=== PATIENT | male | born 1970 | race Caucasian/White ===

== ENCOUNTER 2017-01-23 10:54 | Outpatient (CLI) | payer MEDICARE, MEDICAID ==
[~2017-01-23 10:54] MED LIST: ACET325T53 PO; AMLO5TAB2 PO; ATOR20TA PO; CARV25TA PO; CLON0.1T PO; DOCU-25 PO; FENO145T PO; FURO-145 PO; HYDR100T27 PO; INSU100V3 IJ; ISOS30TA PO; LANC-346 MC; LOSA100T3 PO; MAG30ORA PO; MAGN400O4 PO; METF10002 PO; ONDA4TAB5 PO; OXYC-34 PO; PANT40TA2 PO; ZOLP5TAB7 PO
== END 2017-01-23 23:59 | disposition home or self-care (01) ==
LOC: RAD 10:54
PROVIDERS: ATTEND Family Medicine
DX: M25.832 Other specified joint disorders, left wrist (principal); M79.632 Pain in left forearm
CPT/HCPCS: 73090-TC; 73110

== ENCOUNTER 2017-04-15 12:21 | Outpatient (CLI) | payer MEDICARE, MEDICAID | END 2017-04-15 23:59 | disposition home or self-care (01) | LOC: RAD 12:21 | PROVIDERS: ATTEND Family Medicine | DX: I70.0 Atherosclerosis of aorta (principal); M47.894 Other spondylosis, thoracic region; F17.200 Nicotine dependence, unspecified, uncomplicated; Z95.0 Presence of cardiac pacemaker | CPT/HCPCS: 71020-TC ==

== ENCOUNTER 2017-12-12 14:45 | Outpatient (CLI) | payer MEDICARE, MEDICAID ==
[~2017-12-12 14:45] MED LIST changes: -AMLO5TAB2 PO; +AMLO5TAB7 PO; +DOCU-141 PO; -DOCU-25 PO; +MAGN400O21 PO; -MAGN400O4 PO; +METF-442 PO; -METF10002 PO; +OXYC-133 PO; -OXYC-34 PO; -ZOLP5TAB7 PO; +ZOLP5TAB8 PO
[2017-12-12 16:01] LABS: BASOPHILS # (AUTO) 0.1 /CMM (0.0-0.2); BASOPHILS % (AUTO) 0.5 % (0.0-2.0); EOSINOPHILS % (AUTO) 2.7 % (0.0-6.0); HEMATOCRIT 41 % (39-51); HEMOGLOBIN 13.4 g/dL (13.5-17.5); LYMPHOCYTES # (AUTO) 3.6 /CMM (0.8-4.8); LYMPHOCYTES % (AUTO) 31.9 % (20.0-44.0); MEAN CORPUSCULAR HGB CONC 33 g/dl (31.0-36.0); MEAN CORPUSCULAR VOLUME 91 fL (80-96); MONOCYTES # (AUTO) 1.2 /CMM (0.1-1.30); MONOCYTES % (AUTO) 10.3 % (2.0-12.0); NEUTROPHILS # (AUTO) 6.1 /CMM (1.8-8.9); NEUTROPHILS % (AUTO) 54.6 % (43.0-81.0); PLATELET COUNT (AUTO) 247 /CMM (150-450); RDW COEFFICIENT OF VARIATION 14.6 (11.5-15.0); RED BLOOD CELL COUNT(AUTO) 4.49 MIL/uL (4.5-6.0); WHITE BLOOD COUNT (AUTO) 11.3 K/uL (4.3-11.0)
[2017-12-12 16:07] LABS: CALCIUM, SERUM 8.9 mg/dL (8.5-10.1); CREATININE 1.7 mg/dL (0.6-1.3); POTASSIUM 3.5 mmol/L (3.5-5.1)
== END 2017-12-12 23:59 | disposition home or self-care (01) ==
LOC: RAD 14:45
PROVIDERS: ATTEND Internal Medicine Cardiovascular Disease
DX: I51.7 Cardiomegaly (principal); I08.0 Rheumatic disorders of both mitral and aortic valves; I50.9 Heart failure, unspecified; M47.894 Other spondylosis, thoracic region; I70.0 Atherosclerosis of aorta
CPT/HCPCS: 36415; 71046; 80048-TC; 83880; 85025-TC; 93307-TC

== ENCOUNTER 2017-12-26 16:39 | Inpatient (IN) | payer MEDICARE, MEDICAID ==
[~2017-12-26] VITALS: Ht 185.4 cm; Wt 137.4 kg
--- NOTE | 2017-12-26 16:45 | NUR ---
SENT HERE BY DR ESPINAL FOR WORSENING SX COUGH/SOB. DX W/ PNA A WEEK AGO. A/OX 4. BREATHING EVEN AND UNLABORED. NO DISTRESS NOTED. VITALS STABLE. SAFETY AND COMFORT MEASURES IN PLACE. AWAITING MD ORDERS.
[2017-12-26 17:31] LABS: BASOPHILS % (AUTO) 0.4 % (0.0-2.0); EOSINOPHILS % (AUTO) 1.3 % (0.0-6.0); HEMATOCRIT 34 % (39-51); HEMOGLOBIN 11.4 g/dL (13.5-17.5); LYMPHOCYTES # (AUTO) 1.9 /CMM (0.8-4.8); LYMPHOCYTES % (AUTO) 28.6 % (20.0-44.0); MEAN CORPUSCULAR HGB CONC 33 g/dl (31.0-36.0); MEAN CORPUSCULAR VOLUME 90 fL (80-96); MONOCYTES # (AUTO) 1.1 /CMM (0.1-1.30); MONOCYTES % (AUTO) 16.4 % (2.0-12.0); NEUTROPHILS # (AUTO) 3.6 /CMM (1.8-8.9); NEUTROPHILS % (AUTO) 53.3 % (43.0-81.0); PLATELET COUNT (AUTO) 311 /CMM (150-450); RDW COEFFICIENT OF VARIATION 15.1 (11.5-15.0); RED BLOOD CELL COUNT(AUTO) 3.79 MIL/uL (4.5-6.0); WHITE BLOOD COUNT (AUTO) 6.8 K/uL (4.3-11.0)
[2017-12-26 17:35] LABS: TROPONIN I 0.024 ng/mL (0.00-0.056)
[2017-12-26 17:40] LABS: ALBUMIN 2.5 g/dL (3.4-5.0); BILIRUBIN,DIRECT 0.1 mg/dL (0.0-0.2); BILIRUBIN,TOTAL 0.3 mg/dL (0.2-1.0); CALCIUM, SERUM 8.5 mg/dL (8.5-10.1); CREATININE 2.8 mg/dL (0.6-1.3); TOTAL PROTEIN, SERUM 6.4 g/dL (6.4-8.2)
--- NOTE | 2017-12-26 17:40 | NUR ---
NEW IV STARTED ON LEFT HAND, 20G. BLOOD DRAWN AND SENT TO LAB.
[2017-12-26 18:02] LABS: INR 0.95 (0.85-1.15)
[2017-12-26] MEDS ORDERED: CLON0.1T PO (18:11)
[2017-12-26] MEDS ORDERED: METO50TA7 PO (18:11)
[2017-12-26] MEDS ORDERED: VARE1TAB21 PO (18:11)
[2017-12-26] MEDS ORDERED: GABA600T2 PO (18:11)
[2017-12-26] MEDS ORDERED: SUCR1ORA PO (18:11)
[2017-12-26] MEDS ORDERED: LIRA0.6P2 SQ (18:11)
[2017-12-26] MEDS ORDERED: OXYC10SY PO (18:11)
[2017-12-26] MEDS ORDERED: LOSA100T15 PO (18:11)
[2017-12-26] MEDS ORDERED: ROSU10TA PO (18:11)
[2017-12-26] MEDS ORDERED: SITA100T PO (18:11)
[2017-12-26] MEDS ORDERED: CYAN10009 SL (18:11)
[2017-12-26] MEDS ORDERED: CLOP75TA15 PO (18:11)
[2017-12-26] MEDS ORDERED: IPRA0.2S49 NEB (18:11)
[2017-12-26] MEDS ORDERED: CARV25TA2 PO (18:11)
[2017-12-26] MEDS ORDERED: BENZ200C53 PO (18:11)
[2017-12-26] MEDS ORDERED: INSU200I4 SQ (18:11)
[2017-12-26] MEDS ORDERED: NALO0.4A7 IJ (18:11)
[2017-12-26] MEDS ORDERED: BUDE10.2 INH (18:11)
[2017-12-26] MEDS ORDERED: METF-442 PO (18:11)
[2017-12-26] MEDS ORDERED: INSU100V30 IJ (18:11)
[2017-12-26] MEDS ORDERED: ISOS30TA6 PO (18:11)
[2017-12-26] MEDS ORDERED: FURO40TA5 PO (18:11)
[2017-12-26] MEDS ORDERED: HYDR100T27 PO (18:11)
[2017-12-26] MEDS ORDERED: PANT40TA4 PO (18:11)
[2017-12-26] MEDS ORDERED: ERGO400T7 PO (18:11)
[2017-12-26] MEDS ORDERED: SPIR50TA5 PO (18:11)
[2017-12-26] MEDS ORDERED: FENO145T PO (18:11)
[2017-12-26] MEDS ORDERED: FUROSEMIDE 40 MG/4 ML VIAL ONE (18:58)
[2017-12-26] MEDS ORDERED: FUROSEMIDE 40 MG/4 ML VIAL IV ONE (19:00)
--- NOTE | 2017-12-26 19:14 | NUR ---
REPORT GIVEN TO BRAVO MARTINEZ FOR GLEN.
--- NOTE | 2017-12-26 19:17 | NUR ---
RECEIVED REPORT FROM JUAN SAGASTUME FOR GLEN.
[2017-12-26 20:00] VITALS: BP_SYST 129; BP_SYST 145; BP_DIAS 72; BP_DIAS 97
--- NOTE | 2017-12-26 20:06 | NUR ---
TRANSPORTED PT TO TELE BED WITHOUT INCIDENT
[2017-12-26] MEDS ORDERED: ACETAMINOPHEN 325 MG TABLET PO PRN (20:30)
[2017-12-26] MEDS ORDERED: Z GUARD REMEDY 2 OZ OINT TP PRN (20:30)
[2017-12-26] MEDS ORDERED: ONDANSETRON HCL/PF 4 MG/2 ML VIAL IVP PRN (20:30)
[2017-12-26] MEDS ORDERED: MAG HYDROX/AL HYDROX/SIMETH 30 ML UDC PO PRN (20:30)
[2017-12-26] MEDS ORDERED: MAGNESIUM HYDROXIDE 30 ML UDC PO PRN (20:30)
[2017-12-26] MEDS ORDERED: ALBUTEROL FS 2.5 MG/3 ML VIAL.NEB NEB PRN (20:30)
[2017-12-26] MEDS ORDERED: ENOXAPARIN SODIUM 40 MG/0.4 ML DISP.SYRIN SQ SCH (21:00)
[2017-12-26] MEDS ORDERED: BENZONATATE 100 MG CAPSULE PO PRN (21:00)
[2017-12-26] MEDS: CARVEDILOL 12.5 MG TABLET PO SCH (21:39)
[2017-12-26] MEDS: AMLODIPINE BESYLATE 5 MG TABLET PO SCH (21:40)
[2017-12-26] MEDS: HYDROCODONE/APAP 5/325MG 1 EACH TABLET PO PRN (21:47)
[2017-12-26] MEDS ORDERED: DEXTROSE 50%-WATER 50 ML DISP.SYRIN IV PRN (22:30)
[2017-12-27] VITALS (7 sets, daily range): BP systolic 144–171; BP diastolic 80–100
[2017-12-27] MEDS: IPRATROPIUM NEB FS 0.5 MG/2.5 ML AMPUL.NEB NEB SCH ×4 (01:44→20:09)
--- NOTE | 2017-12-27 06:25 | NUR ---
RN ADMITTING TEL NOTE RECEIVED PT ON GURNEY FROM ER, NO REP[ORT GIVEN, PT AOX3 VERBALLY RESPONSIVE, ON RA, C/O PAIN, WITH CHRONIC BACK PAIN D/T PAST SX; LOW BACK. C/C; COUGH W/ WORSENING SOB. ADMITTED FOR MILD CHF, WITH LH # 20 G SL, NO SKIN ISSUES NOTED PT AMBULATORY W/ STEADY GAIT, ALL ADMITTING ORDERS ENTERED BY DR RIVERA PER PROTOCOL, ON CARDIAC LOW FAT. ALL NEEDS MET, SAFETY MEASURES EXPLAINED ON ORIENTING PT TO THE ROOM. CL WR.
[2017-12-27 06:36] LABS: BASOPHILS % (AUTO) 0.4 % (0.0-2.0); EOSINOPHILS % (AUTO) 1.7 % (0.0-6.0); HEMATOCRIT 36 % (39-51); HEMOGLOBIN 12.1 g/dL (13.5-17.5); LYMPHOCYTES # (AUTO) 2.1 /CMM (0.8-4.8); LYMPHOCYTES % (AUTO) 28.3 % (20.0-44.0); MEAN CORPUSCULAR HGB CONC 33 g/dl (31.0-36.0); MEAN CORPUSCULAR VOLUME 91 fL (80-96); MONOCYTES # (AUTO) 1.2 /CMM (0.1-1.30); NEUTROPHILS # (AUTO) 3.8 /CMM (1.8-8.9); NEUTROPHILS % (AUTO) 52.6 % (43.0-81.0); PLATELET COUNT (AUTO) 311 /CMM (150-450); RDW COEFFICIENT OF VARIATION 14.9 (11.5-15.0); RED BLOOD CELL COUNT(AUTO) 4.02 MIL/uL (4.5-6.0); WHITE BLOOD COUNT (AUTO) 7.3 K/uL (4.3-11.0)
--- NOTE | 2017-12-27 06:36 | NUR ---
RN CLOSING NOTE PT ENDORSED IN STABLE CONDITION TO AM FOR GLEN, BP MEDS TO BE GIVEN ON TIME PT BP TENDS TO SPIKE UP AMBULATING TO THE BATHROOM, ALL NEEDS MET.
[2017-12-27 07:05] LABS: CALCIUM, SERUM 8.8 mg/dL (8.5-10.1); CREATININE 2.5 mg/dL (0.6-1.3); PHOSPHORUS 4.5 mg/dL (2.5-4.9); POTASSIUM 3.4 mmol/L (3.5-5.1)
--- NOTE | 2017-12-27 07:30 | NUR ---
RN IV THERAPY OPENING NOTES RECEIVED PATIENT IN STABLE CONDITION. IN NO APPARENT DISTRESS. BEDSIDE RAILS ARE UPX2. BED IS LOCKED AND LOWERED. CALL LIGHT IS WITHIN REACH. WILL CONTINUE TO MONITOR.
[2017-12-27] MEDS: BLOOD SUGAR DIAGNOSTIC 1 EACH STRIP IN SCH ×4 (08:17→21:27)
[2017-12-27] MEDS: SUCRALFATE 1 G/10 ML UDC PO SCH ×3 (08:19→17:16)
[2017-12-27] MEDS: DOCUSATE SODIUM 100 MG CAPSULE PO SCH ×2 (08:19→17:00)
[2017-12-27] MEDS: GABAPENTIN 400 MG CAPSULE PO SCH ×2 (08:19→17:16)
[2017-12-27] MEDS: PANTOPRAZOLE 40 MG TABLET.DR PO SCH (08:20)
[2017-12-27] MEDS: FENOFIBRATE NANOCRYS (145 MG) 145 MG TABLET PO SCH (08:20)
[2017-12-27] MEDS: CARVEDILOL 12.5 MG TABLET PO SCH ×2 (08:21→20:00)
[2017-12-27] MEDS: CLOPIDOGREL BISULFATE 75 MG TABLET PO SCH (08:21)
[2017-12-27] MEDS: ISOSORBIDE MONONITRATE (30MG) 30 MG TAB.SR.24H PO SCH (08:21)
[2017-12-27] MEDS: AMLODIPINE BESYLATE 5 MG TABLET PO SCH ×2 (08:22→20:01)
[2017-12-27 08:51] LABS: EOSINOPHILS % (MANUAL) 1 % (0-4); LYMPHOCYTES % (MANUAL) 27 % (16-48); MONOCYTES % (MANUAL) 13 % (0-11.0); NEUTROPHILS % (MANUAL) 59 (42-76)
[2017-12-27] MEDS ORDERED: POTASSIUM CHLORIDE 10 MEQ TABLET.SA PO ONE (12:00)
[2017-12-27] MEDS: HEPARIN SODIUM, PORCINE 5000 UNITS/1 ML VIAL SQ SCH ×2 (12:03→21:29)
[2017-12-27] MEDS: INSULIN REGULAR, HUMAN 100 UNIT/ML 3 ML VIAL SQ PRN ×2 (12:16→21:34)
--- NOTE | 2017-12-27 13:20 | NUR ---
RT HHN TX NOT GIVEN PATIENT WAS NOT IN ROOM OR WALKING AROUND
[2017-12-27] MEDS: CLONIDINE HCL 0.1 MG TABLET PO PRN (17:17)
--- NOTE | 2017-12-27 18:32 | NUR ---
BOAT HOP CLOSING NOTES PATIENT IN STABLE CONDITION. IN NO APPARENT DISTRESS. BEDSIDE RAILS ARE UPX2. BED IS LOCKED AND LOWERED. IV LINE IS INTACT AND PATENT. ALL NEEDS WERE MET. CALL LIGHT IS WITHIN REACH. WILL ENDORSE CARE TO INBOUND SALES CONSULTANT NURSE FOR GLEN.
[2017-12-27] MEDS: HYDROCODONE/APAP 5/325MG 1 EACH TABLET PO PRN (20:01)
--- NOTE | 2017-12-27 21:20 | NUR ---
TELE-1/CLINICAL EDUCATION CONSULTANT PT COMPLAINT OF BACK PAIN WITH NO RELIEF FROM PRN NORCO 5/325. DR. RIVERA PAGED AND NEW ORDER FOR NORCO 10/325 Q4 PRN OBTAINED. WILL CONTINUE TO MONITOR.
[2017-12-27] MEDS: ZOLPIDEM TARTRATE 5 MG TABLET PO PRN (21:27)
[2017-12-27] MEDS: HYDROCODONE/APAP 10/325MG 1 EA TABLET PO PRN (21:36)
--- NOTE | 2017-12-27 22:28 | NUR ---
TELE-1/UX CONSULTANT PT MOVED TO ROOM 120-1 FOR PT SATISFACTION. WILL CONTINUE TO MONITOR.
[2017-12-27 23:55] LABS: APPEARANCE,URINE CLEAR (CLEAR); BILIRUBIN,URINE NEGATIVE (NEGATIVE); BLOOD, URINE 1+ Ery/uL (NEGATIVE); COLOR,URINE YELLOW (YELLOW); KETONES,URINE NEGATIVE (NEGATIVE); LEUKOCYTE ESTERASE ,URINE NEGATIVE (NEGATIVE); NITRITE, URINE NEGATIVE (NEGATIVE); PROTEIN,URINE 3+ mg/dl (NEGATIVE); UGLUCOSE TRACE mg/dL (NEGATIVE); UROBILINOGEN,URINE 0.2 EU/dL (0.2)
[2017-12-28] VITALS (7 sets, daily range): BP systolic 137–201; BP diastolic 66–111
[2017-12-28 00:01] LABS: BACTERIA,URINE Few /HPF (None Seen); FINE GRANULAR CASTS,URINE Rare /LPF (None Seen); HYALINE CASTS, URINE Few /LPF (None Seen); SQUAMOUS EPITHELIAL CELL,UR Few /HPF (None Seen)
[2017-12-28] MEDS: CLONIDINE HCL 0.1 MG TABLET PO PRN ×2 (00:02→18:41)
[2017-12-28 00:16] LABS: CREATININE, URINE 132.1 MG/DL (30.0-125.0)
[2017-12-28 00:24] LABS: URINE TOTAL PROTEIN 688.5 mg/dL (0-11.9)
[2017-12-28 00:48] LABS: EOSINOPHIL,URINE None Seen
[2017-12-28] MEDS: IPRATROPIUM NEB FS 0.5 MG/2.5 ML AMPUL.NEB NEB SCH ×4 (02:07→19:30)
[2017-12-28 06:34] LABS: BASOPHILS % (AUTO) 0.2 % (0.0-2.0); EOSINOPHILS % (AUTO) 1.8 % (0.0-6.0); HEMATOCRIT 37 % (39-51); LYMPHOCYTES # (AUTO) 2.1 /CMM (0.8-4.8); LYMPHOCYTES % (AUTO) 24.6 % (20.0-44.0); MEAN CORPUSCULAR HGB CONC 33 g/dl (31.0-36.0); MEAN CORPUSCULAR VOLUME 91 fL (80-96); MONOCYTES # (AUTO) 1.2 /CMM (0.1-1.30); MONOCYTES % (AUTO) 13.6 % (2.0-12.0); NEUTROPHILS # (AUTO) 5.1 /CMM (1.8-8.9); NEUTROPHILS % (AUTO) 59.8 % (43.0-81.0); PLATELET COUNT (AUTO) 327 /CMM (150-450); RDW COEFFICIENT OF VARIATION 14.9 (11.5-15.0); RED BLOOD CELL COUNT(AUTO) 4.04 MIL/uL (4.5-6.0); WHITE BLOOD COUNT (AUTO) 8.6 K/uL (4.3-11.0)
--- NOTE | 2017-12-28 06:35 | NUR ---
TELE-1/FORMWORK CARPENTER PT COMPLAINT OF DRY COUGH. CALL PLACED TO DR. RIVERA FOR PRN COUGH MEDICATION. AWAITING CALL BACK.
[2017-12-28 07:05] LABS: ALBUMIN 2.3 g/dL (3.4-5.0); BILIRUBIN,TOTAL 0.2 mg/dL (0.2-1.0); CALCIUM, SERUM 8.9 mg/dL (8.5-10.1); CREATININE 2.1 mg/dL (0.6-1.3); MAGNESIUM 2.2 mg/dL (1.8-2.4); PHOSPHORUS 3.6 mg/dL (2.5-4.9); POTASSIUM 3.9 mmol/L (3.5-5.1); TOTAL PROTEIN, SERUM 6.1 g/dL (6.4-8.2)
[2017-12-28 07:10] LABS: THYROID STIMULATING HORMONE 2.17 uIU/mL (0.358-3.74)
[2017-12-28] MEDS: BLOOD SUGAR DIAGNOSTIC 1 EACH STRIP IN SCH ×4 (07:30→21:20)
[2017-12-28] MEDS: FLUTICASONE/VILANTEROL 1 EACH BLST.W.DEV IH SCH (08:51)
[2017-12-28] MEDS: SUCRALFATE 1 G/10 ML UDC PO SCH ×3 (08:51→17:23)
[2017-12-28] MEDS: DOCUSATE SODIUM 100 MG CAPSULE PO SCH ×2 (08:52→16:43)
[2017-12-28] MEDS: CARVEDILOL 12.5 MG TABLET PO SCH ×2 (08:53→21:18)
[2017-12-28] MEDS: CLOPIDOGREL BISULFATE 75 MG TABLET PO SCH (08:53)
[2017-12-28] MEDS: GABAPENTIN 400 MG CAPSULE PO SCH ×2 (08:55→16:42)
[2017-12-28] MEDS: PANTOPRAZOLE 40 MG TABLET.DR PO SCH (08:55)
[2017-12-28] MEDS: ISOSORBIDE MONONITRATE (30MG) 30 MG TAB.SR.24H PO SCH (08:55)
[2017-12-28] MEDS: FENOFIBRATE NANOCRYS (145 MG) 145 MG TABLET PO SCH (08:55)
[2017-12-28] MEDS: AMLODIPINE BESYLATE 5 MG TABLET PO SCH ×2 (08:56→21:18)
[2017-12-28] MEDS: HEPARIN SODIUM, PORCINE 5000 UNITS/1 ML VIAL SQ SCH ×2 (09:02→21:17)
[2017-12-28] MEDS: INSULIN REGULAR, HUMAN 100 UNIT/ML 3 ML VIAL SQ PRN ×3 (09:25→21:22)
[2017-12-28] MEDS ORDERED: ISOSORBIDE MONONITRATE (30MG) 30 MG TAB.SR.24H PO ONE (15:00)
[2017-12-28] MEDS: HYDROCODONE/APAP 10/325MG 1 EA TABLET PO PRN ×2 (15:28→21:23)
[2017-12-28] MEDS: hydrALAZINE HCL 25 MG TABLET PO PRN (16:47)
[2017-12-28] MEDS ORDERED: hydrALAZINE HCL 50 MG TABLET PO ONE (19:30)
--- NOTE | 2017-12-28 19:30 | NUR ---
B2B MANAGED SERVICE SALES EXEC NOTE RECEIVED PATIENT FROM DAY SHIFT, PATIENT IS ALERT AND ORIENTEDX4, NO S/S OF RESPIRATORY DISTRESS OR PAIN AT THIS TIME. IV ON LEFT HAND IS PATENT AND INTACT, SL ONLY. TELE SR 70. PT HAS BEEN HAVING HIGH BP, ACKNOWLEDGED NEW ORDER OF HYDRALAZINE 100MG TID PO. WILL START TO ADMINISTER TONIGHT. SRX2, BED IN LOW POSITION, ALL LIGHT WITHIN REACH.
--- NOTE | 2017-12-28 19:35 | NUR ---
TELE REGISTER REPAIRER CLOSING NOTE, PATIENT STABLE, CALL LIGHT IN REACH, BED TO LOWEST SETTING, SIDE RAILS UPX2. PERIODS OF HIGH BLOOD PRESSURE REPORTED TO CHARGE NURSE AND MD AWARE. PATIENT TO START HYDRALAZINE 100MG TID. PENOLOGY TEACHER NURSE AWARE. POINT OF CONTACT FOR PATIENT MEDICATION LIST IS MD ULISES ESPINAL. PATIENT DAUGHTER REZA WISHES TO BE NOTIFIED OF PATIENT CONDITION @ [phone] OTHERWISE PATIENT NEEDS ATTENDED.
--- NOTE | 2017-12-28 20:30 | NUR ---
FREIGHT LOADER NOTE PATIENT WANTS TO TAKE A SHOWER, IT HAS BEEN 3 DAYS, AND HE'S BEEN ASKING FOR IT SINCE ADMISSION. PAGED DR. RIVERA TO SEE IF HE IS OKAY TO SHOWER, SAID OKAY.
--- NOTE | 2017-12-28 22:00 | NUR ---
DESULFURIZER MACHINE NOTE PATIENT COMPLAINS OF BACK PAIN 03/28, NORCO 10-325MG PO GIVEN. WILL MONITOR EFFECTIVENESS.
--- NOTE | 2017-12-28 22:20 | NUR ---
PROCESSING SPEC NOTE PATIENT HAS CONCERNS ABOUT HIS MEDICATIONS. HE STATED THAT HE HAS BEEN GETTING LASIX 60MG PO IN THE MORNING AND 40 MG PO AT [facility] AT HOME, AND ACCORDING TO HIM, DR SAID THAT HE WILL RESUME LASIX, BUT THERE ARE NO ACTIVE ORDERS TO ADMINISTER THE MED. PAGED ONCALL DR RIVERA, AND EXPLAINED THE SITUATION TO GET MED ORDER, BUT DR RIVERA WANTS DR. PRADHAN TO FOLLOW IT UP IN THE MORNING SINCE SHE KNOWS MORE ABOUT THE PATIENT. RELAYED THE MESSAGE TO THE PATIENT WELL.
[2017-12-28] MEDS: ZOLPIDEM TARTRATE 5 MG TABLET PO PRN (23:51)
[2017-12-29] VITALS (7 sets, daily range): BP systolic 157–210; BP diastolic 82–112
[2017-12-29] MEDS: IPRATROPIUM NEB FS 0.5 MG/2.5 ML AMPUL.NEB NEB SCH ×4 (01:32→19:18)
[2017-12-29] MEDS: CLONIDINE HCL 0.1 MG TABLET PO PRN (04:25)
[2017-12-29 06:16] LABS: BASOPHILS % (AUTO) 0.4 % (0.0-2.0); EOSINOPHILS % (AUTO) 2.2 % (0.0-6.0); HEMATOCRIT 36 % (39-51); HEMOGLOBIN 11.9 g/dL (13.5-17.5); LYMPHOCYTES % (AUTO) 24.3 % (20.0-44.0); MEAN CORPUSCULAR HGB CONC 33 g/dl (31.0-36.0); MEAN CORPUSCULAR VOLUME 90 fL (80-96); MONOCYTES # (AUTO) 0.9 /CMM (0.1-1.30); MONOCYTES % (AUTO) 10.9 % (2.0-12.0); NEUTROPHILS # (AUTO) 5.1 /CMM (1.8-8.9); NEUTROPHILS % (AUTO) 62.2 % (43.0-81.0); PLATELET COUNT (AUTO) 346 /CMM (150-450); RDW COEFFICIENT OF VARIATION 15.3 (11.5-15.0); RED BLOOD CELL COUNT(AUTO) 3.98 MIL/uL (4.5-6.0); WHITE BLOOD COUNT (AUTO) 8.2 K/uL (4.3-11.0)
[2017-12-29 06:37] LABS: CALCIUM, SERUM 8.6 mg/dL (8.5-10.1); CREATININE 1.7 mg/dL (0.6-1.3); MAGNESIUM 2.2 mg/dL (1.8-2.4); PHOSPHORUS 3.6 mg/dL (2.5-4.9); POTASSIUM 3.8 mmol/L (3.5-5.1)
--- NOTE | 2017-12-29 06:47 | NUR ---
CHECKER/STOCKER NOTE PATIENT IS RESTING IN BED COMFORTABLY, NO S/S OF RESPIRATORY DISTRESS AND NO COMPLAINS OF PAIN REPORTED. IV ON LEFT HAND IS PATENT AND INTACT, SL ONLY. TELE SR 75. WILL ENDORSE TO DAY SHIFT NURSE FOR GLEN.
--- NOTE | 2017-12-29 07:28 | NUR ---
RN NOTES RECEIVED PT A&0X3, ON ROOM AIR NO SOB OR DISTRESS NOTED. SR ON THE TELE ALE HR 70. L HAND 20G IV SITE INTACT WITH NO IVF. NO COMPLAINTS OF PAIN AT THIS TIME. BED LOCKED AND IN LOWEST POSITION, CALL LIGHT WITHIN REACH, SIDE RAILS UPX3, WILL CONT TO ALE.
[2017-12-29] MEDS: BLOOD SUGAR DIAGNOSTIC 1 EACH STRIP IN SCH ×4 (07:57→21:13)
[2017-12-29] MEDS: CLOPIDOGREL BISULFATE 75 MG TABLET PO SCH (08:41)
[2017-12-29] MEDS: CARVEDILOL 12.5 MG TABLET PO SCH ×2 (08:41→21:12)
[2017-12-29] MEDS: hydrALAZINE HCL 50 MG TABLET PO SCH ×3 (08:41→17:14)
[2017-12-29] MEDS: FENOFIBRATE NANOCRYS (145 MG) 145 MG TABLET PO SCH (08:42)
[2017-12-29] MEDS: AMLODIPINE BESYLATE 5 MG TABLET PO SCH ×2 (08:42→21:11)
[2017-12-29] MEDS: DOCUSATE SODIUM 100 MG CAPSULE PO SCH ×2 (08:42→17:14)
[2017-12-29] MEDS: GABAPENTIN 400 MG CAPSULE PO SCH ×2 (08:42→17:14)
[2017-12-29] MEDS: PANTOPRAZOLE 40 MG TABLET.DR PO SCH (08:43)
[2017-12-29] MEDS: SUCRALFATE 1 G/10 ML UDC PO SCH ×3 (08:43→17:15)
[2017-12-29] MEDS: HEPARIN SODIUM, PORCINE 5000 UNITS/1 ML VIAL SQ SCH ×2 (08:43→21:14)
[2017-12-29] MEDS: FLUTICASONE/VILANTEROL 1 EACH BLST.W.DEV IH SCH (08:43)
[2017-12-29] MEDS ORDERED: ISOSORBIDE MONONITRATE (30MG) 30 MG TAB.SR.24H PO SCH (09:00)
[2017-12-29] MEDS: INSULIN REGULAR, HUMAN 100 UNIT/ML 3 ML VIAL SQ PRN ×3 (12:14→21:23)
[2017-12-29] MEDS ORDERED: ISOSORBIDE MONONITRATE (30MG) 30 MG TAB.SR.24H PO ONE (15:00)
[2017-12-29] MEDS: CLONIDINE HCL 0.1 MG TABLET PO SCH ×2 (15:03→21:13)
--- NOTE | 2017-12-29 15:30 | NUR ---
RN NOTES PT PULLED OUT IV BY ACCIDENT. REFUSING TO HAVE A NEW IV STARTED AT THIS TIME. EDUCATION DONE, PT STATES IT WILL HURT AND HE DOESN'T NEED ONE. WILL ATTEMPT AGAIN.
--- NOTE | 2017-12-29 19:30 | NUR ---
RN NOTES PT RECIEVED IN BED. A/O X3. TELE SR 86. PT STABLE CONDITION. PT REFUSING IV. PT EXPLAINED RISKS AND BENEFITS AND STILL REFUSED. BED LOWEST LOCKED POSITION. CALL LIGHT WITHIN REACH. WILL CONTINUE TO MONITOR.
[2017-12-30] VITALS: BP 182/73
[2017-12-30] MEDS: hydrALAZINE HCL 25 MG TABLET PO PRN ×2 (00:03→04:40)
[2017-12-30] MEDS: ZOLPIDEM TARTRATE 5 MG TABLET PO PRN (00:40)
[2017-12-30] MEDS: HYDROCODONE/APAP 10/325MG 1 EA TABLET PO PRN (00:40)
[2017-12-30] MEDS: IPRATROPIUM NEB FS 0.5 MG/2.5 ML AMPUL.NEB NEB SCH ×3 (01:58→13:30)
[2017-12-30] MEDS: CLONIDINE HCL 0.1 MG TABLET PO PRN (02:00)
[2017-12-30 04:00] VITALS: BP 171/106
--- NOTE | 2017-12-30 06:51 | NUR ---
RN NOTES MONITORED BP THROUGHOUT SHIFT. PRN BP MEDS GIVEN ORDERED. AND BP REMAINED HIGH. NO COMPLAINTS OF S/S OF HIGH BP. PT COMFORTABLE RESTING THROUGHOUT NIGHT WITH NEGATIVE RESTLESSNESS AND DISCOMFORT. CALL LIGHT WITHIN REACH. STILL REFUSING IV. BED LOCKED LOWEST POSITION. WILL ENDORSE TO NEXT SHIFT.
[2017-12-30 06:52] LABS: BASOPHILS % (AUTO) 0.4 % (0.0-2.0); EOSINOPHILS % (AUTO) 2.3 % (0.0-6.0); HEMATOCRIT 36 % (39-51); HEMOGLOBIN 11.9 g/dL (13.5-17.5); LYMPHOCYTES # (AUTO) 2.2 /CMM (0.8-4.8); LYMPHOCYTES % (AUTO) 28.4 % (20.0-44.0); MEAN CORPUSCULAR HGB CONC 33 g/dl (31.0-36.0); MEAN CORPUSCULAR VOLUME 91 fL (80-96); MONOCYTES # (AUTO) 0.7 /CMM (0.1-1.30); MONOCYTES % (AUTO) 9.7 % (2.0-12.0); NEUTROPHILS # (AUTO) 4.5 /CMM (1.8-8.9); NEUTROPHILS % (AUTO) 59.2 % (43.0-81.0); PLATELET COUNT (AUTO) 338 /CMM (150-450); RDW COEFFICIENT OF VARIATION 15.1 (11.5-15.0); RED BLOOD CELL COUNT(AUTO) 3.96 MIL/uL (4.5-6.0); WHITE BLOOD COUNT (AUTO) 7.6 K/uL (4.3-11.0)
[2017-12-30 06:54] LABS: CALCIUM, SERUM 8.8 mg/dL (8.5-10.1); CREATININE 1.8 mg/dL (0.6-1.3); MAGNESIUM 2.4 mg/dL (1.8-2.4); PHOSPHORUS 3.7 mg/dL (2.5-4.9); POTASSIUM 3.8 mmol/L (3.5-5.1)
[2017-12-30] MEDS: BLOOD SUGAR DIAGNOSTIC 1 EACH STRIP IN SCH ×2 (07:30→12:00)
[2017-12-30 08:00] VITALS: BP 184/95
[2017-12-30] MEDS ORDERED: ISOSORBIDE MONONITRATE (30MG) 30 MG TAB.SR.24H PO SCH (09:00)
[2017-12-30] MEDS: SUCRALFATE 1 G/10 ML UDC PO SCH ×2 (09:12→13:28)
[2017-12-30] MEDS: CLOPIDOGREL BISULFATE 75 MG TABLET PO SCH (09:13)
[2017-12-30] MEDS: FENOFIBRATE NANOCRYS (145 MG) 145 MG TABLET PO SCH (09:14)
[2017-12-30] MEDS: GABAPENTIN 400 MG CAPSULE PO SCH (09:14)
[2017-12-30] MEDS: DOCUSATE SODIUM 100 MG CAPSULE PO SCH (09:14)
[2017-12-30] MEDS: CLONIDINE HCL 0.1 MG TABLET PO SCH (09:14)
[2017-12-30] MEDS: AMLODIPINE BESYLATE 5 MG TABLET PO SCH (09:17)
[2017-12-30] MEDS: PANTOPRAZOLE 40 MG TABLET.DR PO SCH (09:17)
[2017-12-30] MEDS: CARVEDILOL 12.5 MG TABLET PO SCH (09:18)
[2017-12-30] MEDS: HEPARIN SODIUM, PORCINE 5000 UNITS/1 ML VIAL SQ SCH (09:21)
[2017-12-30] MEDS: hydrALAZINE HCL 50 MG TABLET PO SCH ×2 (09:33→13:29)
[2017-12-30 11:12] LABS: *SPE A/G RATIO 0.8 (0.7-1.7); *SPE ALBUMIN 2.4 g/dL (2.9-4.4); *SPE ALPHA-1-GLOBULIN 0.2 g/dL (0.0-0.4); *SPE ALPHA-2-GLOBULIN 0.9 g/dL (0.4-1.0); *SPE BETA GLOBULIN 1.2 g/dL (0.7-1.3); *SPE GLOBULIN, TOTAL 3.2 g/dL (2.2-3.9); *SPE M-SPIKE Not Observed g/dL (Not Observed); *SPEGAMMA GLOBULIN 0.8 g/dL (0.4-1.8)
[2017-12-30 12:00] VITALS: BP 156/84
[2017-12-30] MEDS: INSULIN REGULAR, HUMAN 100 UNIT/ML 3 ML VIAL SQ PRN (13:27)
[2017-12-30 13:29] VITALS: BP 156/84
[2017-12-30] MEDS: FLUTICASONE/VILANTEROL 1 EACH BLST.W.DEV IH SCH (13:30)
[2017-12-30] MEDS ORDERED: FUROSEMIDE 40 MG TABLET PO SCH (13:30)
[2017-12-31 10:17] LABS: CALCITRIOL VIT D,1, 25 DIHYDRO 27.5 pg/mL (19.9-79.3)
[2018-01-02 05:16] LABS: PTH, INTACT 21 pg/mL (15-65)
== END 2017-12-30 16:45 | disposition home or self-care (01) | DRG 291 ==
LOC: ER 16:43 → TELE1 19:11
PROVIDERS: ADMIT Internal Medicine; ATTEND Internal Medicine
DX: I11.0 Hypertensive heart disease with heart failure (principal); J96.01 Acute respiratory failure with hypoxia; N17.0 Acute kidney failure with tubular necrosis; Z68.41 Body mass index [BMI] 40.0-44.9, adult; E11.22 Type 2 diabetes mellitus with diabetic chronic kidney disease; E11.9 Type 2 diabetes mellitus without complications; D63.8 Anemia in other chronic diseases classified elsewhere; E78.5 Hyperlipidemia, unspecified; Z95.1 Presence of aortocoronary bypass graft; F17.200 Nicotine dependence, unspecified, uncomplicated; G89.29 Other chronic pain; I25.10 Atherosclerotic heart disease of native coronary artery without angina pectoris; Z87.01 Personal history of pneumonia (recurrent); Z79.51 Long term (current) use of inhaled steroids; Z79.4 Long term (current) use of insulin; Z79.84 Long term (current) use of oral hypoglycemic drugs; Z79.899 Other long term (current) drug therapy; I50.23 Acute on chronic systolic (congestive) heart failure; I13.0 Hypertensive heart and chronic kidney disease with heart failure and stage 1 through stage 4 chronic kidney disease, or unspecified chronic kidney disease; N18.9 Chronic kidney disease, unspecified; Z98.890 Other specified postprocedural states; G47.30 Sleep apnea, unspecified; I16.0 Hypertensive urgency; J44.9 Chronic obstructive pulmonary disease, unspecified
CPT/HCPCS: 36415; 71045-TC; 80048-TC; 80053-TC; 80061-TC; 80076-TC; 81000-TC; 82306; 82550-TC; 82570-TC; 82652; 82962-TC; 83735-TC; 83880; 83970; 84100-TC; 84155; 84155-TC; 84165; 84300-TC; 84443-TC; 84484-TC; 85025-TC; 85730-TC; 87081-TC; A4606; J1644; J1650; J1815; J1940; J7030; Z7610